=== PATIENT | male | born 1995 | race Caucasian/White ===

== ENCOUNTER 2024-05-13 16:26 | Emergency (ER) | payer OTHER, SELFPAY ==
[2024-05-13 16:33] VITALS: BP 149/80; PULSE 70; RESP 18; TEMP 36.8; O2SAT 99
--- NOTE | 2024-05-13 17:03 | ED.EAR ---
HPI - Ear Problem General Chief complaint: Ear Stated complaint: ears clogged Time Seen by Provider: 05/13/24 17:06 Source: patient Mode of arrival: ambulatory Limitations: no limitations History of Present Illness HPI Narrative: 29-year-old male presented for complaint of bilateral ears clogged. States he cannot hear out of the right ear and has had ringing, also has minimal hearing in the left ear. denies dizziness, headache, sinus congestion or fever. Has used hydrogen peroxide in ears without improvement. MD Complaint: ear pain Related Data Allergies Allergy/AdvReac Type Severity Reaction Status Date / Time No Known Allergies Allergy Mild Verified 05/13/24 16:37 Review of Systems Review of Systems: Per HPI All systems reviewed & are unremarkable except as noted in HPI and below PMFSH Social History Social History (System 10/27/23 @ 13:29 by Dustin Blackwell) Smoking status: Never smoker Alcohol intake: current Comments At time of signature, agree with nursing past medical, surgical, social and family history. There is no relevant family history pertinent to the presenting complaint Exam Narrative: GENERAL: Well-appearing EYES: conjunctivae clear ENT: Nares clear. Mucous membranes moist. TM unable to visualize bilaterally due to excess cerumen; no tragal tenderness. Oropharynx not erythematous without lesions no drooling, no hoarseness, no trismus, uvula midline. NECK: Supple. No lymphadenopathy CHEST: no respiratory distress SKIN: Warm, dry NEURO: Alert and oriented x3. PSYCH: Normal mood and affect Course Course Emergency Course: Patient is aware of diagnosis, understands and agrees to treatment plan. Anticipatory guidance given. Patient agrees to follow-up as directed and is aware of reasons to seek care at the emergency department. Portions of this record may have been created with voice recognition software Level of Care: Express Care Visit Vital Signs Vital signs: Vital Signs Temperature 98.3 F 05/13/24 16:33 Pulse Rate 70 05/13/24 16:33 Respiratory Rate 18 05/13/24 16:33 Blood Pressure 149/80 H 05/13/24 16:33 Pulse Oximetry 99 05/13/24 16:33 Oxygen Delivery Room Air 05/13/24 16:33 Temperature 98.3 F 05/13/24 16:33 Pulse Rate 70 05/13/24 16:33 Respiratory Rate 18 05/13/24 16:33 Blood Pressure 149/80 H 05/13/24 16:33 Pulse Oximetry 99 05/13/24 16:33 Oxygen Delivery Room Air 05/13/24 16:33 Reviewed Procedures Ear Wax Removal Both Ears: Ear Wax Removal Date: 05/13/24 Cerumenolytic Used: other ( Hydrogen peroxide and warm water) Results: Re-examined: some cerumen remains TM Examination: TM(s) intact, normal appearance Ear Canal Exam: atraumatic Patient Tolerated Procedure: well and no complications Technique: ear canal irrigated and ear canal curetted Additional Comments: Pt reported immediate improvement in hearing from both ears after large amount of cerumen removed. Small amount of cerumen remains near bilateral TMs, pt will use otc drops. Medical Decision Making MDM Narrative Medical decision making narrative: discussed physical exam findings, Advised supportive measures and signs/symptoms to go to the ER. Patient is appropriate for outpatient treatment and follow-up. Differential Diagnosis Differential Diagnosis: Coronavirus, strep pharyngitis, allergic rhinitis, upper respiratory tract infection, sinusitis, rhinosinusitis, nasopharyngitis, viral pharyngitis, otitis media, otitis externa, eustachian tube dysfunction, foreign body, cerumen impaction. Vital Signs Vital Signs: Vital Signs Temperature 98.3 F 05/13/24 16:33 Pulse Rate 70 05/13/24 16:33 Respiratory Rate 18 05/13/24 16:33 Blood Pressure 149/80 H 05/13/24 16:33 Pulse Oximetry 99 05/13/24 16:33 Oxygen Delivery Room Air 05/13/24 16:33 Temperature 98.3 F 05/13/24 16:33 Pulse Rate 70 05/13/24 16:33 Respiratory Rate 18 05/13/24 16:33 Blood Pressure 149/80 H 05/13/24 16:33 Pulse Oximetry 99 05/13/24 16:33 Oxygen Delivery Room Air 05/13/24 16:33 Discharge Plan Discharge Clinical Impression: Cerumen impaction Qualifiers: Laterality: bilateral Qualified Code(s): H61.23 - Impacted cerumen, bilateral Patient Disposition: Home, Self-Care Condition: Stable Instructions: How to Use Ear Drops (ED) Additional Instructions: use a earwax softening agent such as [id number] Debrox or a mixture of 1 part hydrogen peroxide in 1 part warm water several times weekly to keep your earwax soft and prevent further impaction. Please follow-up with your primary care doctor if you develop new symptoms. If you have urgent concerns please go to the ER. Patient Language: Setswana Follow-up/Referrals: PHYSICIAN,GARBAGE DEPOT WORKER [Primary Care Provider] - Time of Disposition: 17:30
--- NOTE | 2024-05-13 17:22 | PC.NURSE ---
PROVIDER IS IRRIGATING EARS AT THIS TIME.
== END 2024-05-13 17:32 | disposition home or self-care (01) ==
PROVIDERS: Emergency Provider Nurse Practitioner Family
DX: H61.23 Impacted cerumen, bilateral (principal)
CPT/HCPCS: 69210; 99212; A9270; G0463

== ENCOUNTER 2024-11-04 14:16 | Emergency (ER) | payer OTHER, MEDICAID, SELFPAY ==
[2024-11-04 14:20] VITALS: BP 154/88; PULSE 90; RESP 16; TEMP 36.7; O2SAT 99
--- OUTSIDE RECORDS SUMMARY | 2024-11-04 14:25 | XMS_ITS | Clinical Summary ---
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 Name Role Phone Unavailable Primary Care Provider Unavailabl e Social History Tobacco Use Types Packs/Day Years Used Date Smoking Tobacco: Never Assessed Sex and Gender Information Value Date Recorded Sex Assigned at Not on file Legal Sex Male 8:20 PM CDT Gender Identity Not on file Sexual Orientation Not on file Plan of Treatment Health Maintenance Due Date Last Done Comments Annual Physical 1997 Hepatitis C 02/16/2012 DTaP, Tdap and Td Vaccines ( 1 - Tdap) 2013 Hepatitis B Vaccines (1 of 3 - 19+ 3-dose series) 2013 HPV Vaccines (1 - 3-dose SCD M series) 2021 COVID-19 Vaccine ( - 2023-2 5 season) 2023 Meningococcal B Vaccine Aged Out No l onger eligible based on patient's age to complete this topic Meningococcal Vaccine Aged Out No demetri skye eligible based on patient's age to complete this topic Pneumococcal Vaccine: Pediat rics (0 to 5 Years) and At-Risk Patients (6 to 49 Years) Aged Out No longer eligible b ased on patient's age to complete this topic RSV Immunizations Under 20 Months Aged Out No longer eligible based on patient's age to complete this topic
--- NOTE | 2024-11-04 14:36 | ED.ALLEREA ---
HPI - Allergic Reaction General Chief complaint: Allergic Reaction Stated complaint: Bee Sting Time Seen by Provider: 11/04/24 14:36 Source: patient Mode of arrival: ambulatory Limitations: no limitations History of Present Illness HPI narrative: 29 yo M presents with c/o multiple bee stings. Was mowing grass with push mower and thinks he mowed over bee hive. bees swarmed up and started stinging me. Took ibuprofen prior to arrival. voice feels horse. No CP, SOB or difficulty swallowing. All systems reviewed and negative except as noted above. Related Data Allergies Allergy/AdvReac Type Severity Reaction Status Date / Time No Known Allergies Allergy Mild Verified 11/04/24 14:29 [facility] Social History Social History (System 10/27/23 @ 13:29 by Dustin Blackwell) Smoking status: Never smoker Alcohol intake: current Comments At time of signature, agree with nursing past medical, surgical, social and family history. There is no relevant family history pertinent to the presenting complaint. Exam Narrative: GENERAL: This is a well-nourished, well-developed patient, in no apparent distress. HEAD: normocephalic, atraumatic. EYES: PERRL. Sclera clear/white. Vision is grossly intact. EARS: External ears normal NOSE: External nose normal NECK: Neck supple, non-tender without lymphadenopathy, masses or thyromegaly. CARDIOVASCULAR: Regular rate and rhythm without murmurs, gallops, or rubs. RESPIRATORY: Clear to auscultation. Breath sounds equal bilaterally. No wheezes, rales, or rhonchi. SKIN: warm, Dry, intact with no suspicious lesions or rash, good texture and turgor. Several erythematous papules noted to hands, left eye, 1 to abdomen, several around legs. NEURO: awake, alert, and oriented to person, place and time. There were no obvious focal neurologic abnormalities. EXTREMITIES: No joint tenderness, effusion, or edema noted. Course Course Level of Care: Express Care Visit Vital Signs Vital signs: Vital Signs Temperature 36.7 C 11/04/24 14:20 Pulse Rate 90 11/04/24 14:20 Respiratory Rate 16 11/04/24 14:20 Blood Pressure 154/88 H 11/04/24 14:20 Pulse Oximetry 99 11/04/24 14:20 Oxygen Delivery Room Air 11/04/24 14:20 Temperature 36.7 C 11/04/24 14:20 Pulse Rate 90 11/04/24 14:20 Respiratory Rate 16 11/04/24 14:20 Blood Pressure 154/88 H 11/04/24 14:20 Pulse Oximetry 99 11/04/24 14:20 Oxygen Delivery Room Air 11/04/24 14:20 Reviewed MDM - Allergic Reaction MDM Narrative Medical decision making narrative: patient given Solu-Medrol, Benadryl at [facility]. Reports left eye feels less swollen. Patient continues to have no respiratory distress. Will discharge with prednisone that he will start tomorrow morning. Differential Diagnosis Differential diagnosis: Likely anaphylaxis and allergic reaction Discharge Plan Discharge Clinical Impression: Allergic reaction to bee sting Patient Disposition: Home Condition: Stable Instructions: Insect Bite or Sting (ED) Additional Instructions: Take prednisone as prescribed. Start tomorrow morning. Continue taking Benadryl or Zyrtec to treat itching, allergic reaction symptoms. Take as directed on packaging. Benadryl will cause drowsiness. See your doctor if symptoms are not improving. If you are having difficulty breathing or swallowing go to the ER. Patient Language: Korean Prescriptions: New prednisone 20 mg tablet 40 mg PO DAILY 5 Days Qty: 10 0RF Follow-up/Referrals: PHYSICIAN,APPRENTICE EMBALMER [Primary Care Provider, Internal Medicine] Time of Disposition: 15:02
[2024-11-04] MEDS: diphenhydrAMINE HCl CAP 25 MG CAPSULE PO (14:49)
== END 2024-11-04 15:06 | disposition home or self-care (01) ==
PROVIDERS: Emergency Provider Nurse Practitioner Family
DX: T63.441A Toxic effect of venom of bees, accidental (unintentional), initial encounter (principal)
CPT/HCPCS: 96372; 99213; A9270; G0463; J2919